=== PATIENT | female | born 1975 | race American Indian/Alaskan Native ===

== ENCOUNTER 2016-08-08 08:17 | Outpatient (CLI) | payer BC ==
--- NOTE | 2016-08-08 09:52 | Mammography Report ---
BILATERAL DIAGNOSTIC MAMMOGRAM: HISTORY: Recall for bilateral asymmetries seen in the MLO projection. FINDINGS: On the spot compression image of each breast, the previously noted asymmetric densities demonstrate complete effacement. Additionally, the 90 degree view of each breast demonstrates no evidence of a mass or asymmetric density. IMPRESSION: No suspicious findings. BI-RADS CATEGORY: 2 = Benign ACR BI-RADS MAMMOGRAPHIC CODES: 0 = Needs additional imaging evaluation; 1 = Negative; 2 = Benign; 3 = Probably benign; 4 = Suspicious; 5 = Malignant; 6 = Known biopsy-proven malignancy COMMENT: 1. Dense breast tissue, i.e., adenosis, fibrocystic changes, etc., may obscure an underlying neoplasm. 2. Approximately 10% of cancers are not detected with mammography. 3. A negative mammography report should not delay biopsy if a clinically suspicious mass is present. RECOMMENDATION: Annual screening.
== END 2016-08-08 08:18 | disposition home or self-care (01) ==
LOC: MAMMO 08:17
PROVIDERS: ATTEND Obstetrics & Gynecology Gynecology
DX: R92.8 Other abnormal and inconclusive findings on diagnostic imaging of breast (principal)
CPT/HCPCS: 77066; G0204